=== PATIENT | male | born 1975 | race Caucasian/White ===

== ENCOUNTER 2017-01-23 15:43 | Emergency (ER) | payer OTHER ==
[~2017-01-23] VITALS: Ht 167.6 cm; Wt 80.0 kg
[2017-01-23 16:23] VITALS: BP 147/93; PULSE 54; RESP 18; TEMP 98; O2SAT 100
--- NOTE | 2017-01-23 17:10 | PD ---
HPI Chief Complaint: Laceration/Skin Injury Time Seen by Provider: 17:00 Travel History International Travel<30 days: No Contact w/Intl Traveler<30days: No Traveled to known affect area: No History of Present Illness HPI [id number] male presents for evaluation of laceration to the dorsal right thumb. It was sustained at work today. He reports that he cut it on the frame of the door. He now has a laceration which is mildly painful, aching, worse with movement. Denies numbness, tingling, weakness, range of motion limitation. His last tetanus vaccination is unknown. No other complaints. [facility] Past Medical History Inguinal Hernia: Yes (left side -repaired) Tetanus Vaccination: > 5 Years Influenza Vaccination: No Past Surgical History Abdominal Surgery: Yes (left groin hernia repair) Eye Surgery: Yes (left eye) Social History Alcohol Use: No Tobacco Use: No (quit 5 yrs ago, smoked cigs) Substance Use: No Allergies-Medications (Allergen,Severity, Reaction): Coded Allergies: No Known Allergies (Unverified , 01/23/17) Reported Meds & Prescriptions Reported Meds & Active Scripts Active No Active Prescriptions or Reported Medications Review of Systems Musculoskeletal: Positive: Pain, No: Limited ROM Skin: Positive Other (positive for laceration) Physical Exam Narrative GENERAL: Well-nourished male in no acute distress SKIN: Warm and dry. 1.5 cm L-shaped laceration to the dorsal aspect of the proximal right thumb. There is a smaller U-shaped laceration as well. HEAD: Atraumatic. Normocephalic. EYES: Pupils equal and round. No scleral icterus. No injection or drainage. ENT: No nasal bleeding or discharge. Mucous membranes pink and moist. NECK: Trachea midline. No JVD. CARDIOVASCULAR: Regular rate and rhythm. No murmur appreciated. RESPIRATORY: No accessory muscle use. Clear to auscultation. Breath sounds equal bilaterally. MUSCULOSKELETAL skin as noted above with no bony deformity. The patient has full flexion and extension of the right thumb, full strength is noted. NEUROLOGICAL: Awake and alert. No obvious cranial nerve deficits. Motor grossly within normal limits. Normal speech. Distal sensation is intact on the medial and lateral aspect of the right thumb. Data Data Last Documented VS Vital Signs Date Time Temp Pulse Resp B/P (MAP) Pulse Ox O2 Delivery O2 Flow Rate FiO2 01/23/17 16:23 98.0 54 18 147/93 (111) 100 Room Air Orders Orders Lidocaine 1% Inj (50 Ml) (Xylocaine 1% I (01/23/17 17:15) Tetanus/Diphtheria Tox Adult (Tetanus/Di (01/23/17 17:15) Ed Discharge Order (01/23/17 17:51) Splint Or Brace Apply/Monitor (01/23/17 17:51) MDM Medical Decision Making Medical Screen Exam Complete: Yes Emergency Medical Condition: Yes Medical Record Reviewed: Yes Differential Diagnosis Cutaneous laceration, extensor tendon laceration, open fracture, neurovascular injury Narrative Course Lacerations will be repaired with sutures, he verbally consents. Tetanus status updated. He is placed in a finger splint. He is stable for discharge. Procedures Procedure Narrative LACERATION LOCATION: Right thumb LENGTH: 1.5 cm NUMBER OF STITCHES/TRENT: 6 REPAIR: The area of the laceration was prepped with Betadine and sterilely draped. The laceration was infiltrated with 1% lidocaine digital block. The wound was copiously irrigated and explored without evidence of foreign body, tendon injury or neurovascular injury. The wound was closed using 4-0 prolene simple interrupted. This was a single layer repair. A sterile dressing was applied. The patient was advised to keep the dressing clean and dry. Patient tolerated the procedure well. LACERATION LOCATION: Right thumb LENGTH: 1 cm NUMBER OF STITCHES/TRENT: 2 REPAIR: The area of the laceration was prepped with Betadine and sterilely draped. The laceration was infiltrated with 1% lidocaine digital block. The wound was copiously irrigated and explored without evidence of foreign body, tendon injury or neurovascular injury. The wound was closed using 4-0 prolene simple interrupted. This was a single layer repair. A sterile dressing was applied. The patient was advised to keep the dressing clean and dry. Patient tolerated the procedure well. Diagnosis Primary Impression: Laceration of right thumb Additional Instructions: Wash with soap and water and apply antibiotic cream, finger splint on a daily basis. immobilize right thumb to minimize wound damage. Return in approximately 14 days for suture removal. Med/Other Pt SpecificInfo: Wound Care Scripts No Active Prescriptions or Reported Meds Disposition: 01 DISCHARGE HOME Condition: Stable Sanchez Lo Jan 23, 2017 17:10
[2017-01-23] MEDS ORDERED: TETANUS/DIPHTHERIA TOXOID ADULT 0.5 ML VIAL IM ONE (17:15)
[2017-01-23] MEDS ORDERED: LIDOCAINE HCL 1% 50 ML VIAL INFIL ONE (17:15)
== END 2017-01-23 18:31 | disposition home or self-care (01) ==
LOC: PHEFT 15:43
DX: S61.011A Laceration without foreign body of right thumb without damage to nail, initial encounter (principal); W45.8XXA Other foreign body or object entering through skin, initial encounter; Z23 Encounter for immunization
CPT/HCPCS: 12001; 90471; 90714